=== PATIENT | female | born 1970 | race Two or more races ===

== ENCOUNTER → 2017-06-16 | Outpatient (CLI) | payer OTHER | END | disposition home or self-care (01) | LOC: CFH 13:52 | PROVIDERS: ATTEND Physician Assistant | DX: N64.4 Mastodynia (principal) | CPT/HCPCS: 76641; G0204 ==

== ENCOUNTER → 2018-09-23 | Outpatient (CLI) | payer OTHER | END | disposition home or self-care (01) | LOC: CFH 10:42 | PROVIDERS: ATTEND Obstetrics & Gynecology | DX: Z12.31 Encounter for screening mammogram for malignant neoplasm of breast (principal) | CPT/HCPCS: 77063; 77067 ==

== ENCOUNTER 2020-08-11 23:07 | Emergency (ER) | payer OTHER ==
[~2020-08-11] VITALS: Ht 157.5 cm; Wt 70.0 kg
[~2020-08-11 23:07] MED LIST: DOCU-131 PO; IBUP-1222 PO; NONE PER PT; OXYC-302 PO
[2020-08-11 23:58] VITALS: BP 132/79
== END 2020-08-12 | disposition home or self-care (01) ==
LOC: ED 23:58
DX: S50.861A Insect bite (nonvenomous) of right forearm, initial encounter (principal); L03.113 Cellulitis of right upper limb; W57.XXXA Bitten or stung by nonvenomous insect and other nonvenomous arthropods, initial encounter; Y93.89 Activity, other specified; Y92.89 Other specified places as the place of occurrence of the external cause; Y99.8 Other external cause status
CPT/HCPCS: 99283; Q0177

== ENCOUNTER 2021-01-04 11:48 | Emergency (ER) | payer BC, OTHER ==
[~2021-01-04] VITALS: Ht 157.5 cm; Wt 68.4 kg
[~2021-01-04 11:48] MED LIST changes: -OXYC-302 PO; +OXYC1TAB14 PO
--- NOTE | 2021-01-04 12:01 | NUR ---
Using restroom from triage with [employer] sample instructions given with stated understanding of these.
--- NOTE | 2021-01-04 12:16 | NUR ---
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 DOCUMENTATION SIGNED.
--- NOTE | 2021-01-04 12:17 | NUR ---
PT HAS BEEN HAVING N/V/D FOR 3 DAYS NOW.
[2021-01-04] MEDS ORDERED: MAALOX/HYOSCYAMINE/LIDOCAINE 45 ML BTL PO ONE (12:30)
[2021-01-04] MEDS ORDERED: SODIUM CHLORIDE FLUSH 10ML SYR IVF ONE (12:30)
[2021-01-04] MEDS ORDERED: ONDANSETRON 2MG/ML, 2ML IVPush ONE (12:30)
[2021-01-04] MEDS ORDERED: FAMOTIDINE 20 MG/2 ML IVPush ONE (12:30)
[2021-01-04] MEDS ORDERED: SODIUM CHLORIDE 0.9% 1,000ML IVBOLUS ONE (12:30)
[2021-01-04 12:40] LABS: BASOPHILS % (AUTO) 1 % (0-1); EOSINOPHILS % (AUTO) 3 % (1-7); LYMPHOCYTES % (AUTO) 21 % (22-44); MEAN CORPUSCULAR HEMOGLOBIN 29.8 pg (27.0-34.8); MEAN CORPUSCULAR HGB CONC 33.4 g/dL (32.4-35.8); MONOCYTES % (AUTO) 6 % (2-9); NEUTROPHILS % (AUTO) 70 % (42-75); PLATELET COUNT 283 x10^3/uL (130-400); RED BLOOD COUNT 4.79 x10^6/uL (3.82-5.3); RED CELL DISTRIBUTION WIDTH 14.3 % (9.6-15.2)
[2021-01-04] MEDS ORDERED: MAALOX/HYOSCYAMINE/LIDOCAINE 45 ML BTL ONE (12:47)
[2021-01-04] MEDS ORDERED: FAMOTIDINE 20 MG/2 ML ONE (12:47)
[2021-01-04] MEDS ORDERED: ONDANSETRON 2MG/ML, 2ML ONE (12:47)
[2021-01-04 12:49] LABS: MD NO
[2021-01-04 12:50] LABS: ALBUMIN 4.1 g/dL (3.4-5.0); ANION GAP 6 mmol/L (5-15); CALCIUM 9.1 mg/dL (8.5-10.1); CHLORIDE 113 mmol/L (98-107)
[2021-01-04 12:53] LABS: ALANINE AMINOTRANSFERASE 45 U/L (12-78); ALKALINE PHOSPHATASE 43 U/L (45-117); BILIRUBIN,TOTAL 0.5 mg/dL (0.2-1.0); CREATININE 0.62 mg/dL (0.55-1.02); TOTAL PROTEIN 7.6 g/dL (6.4-8.2)
--- NOTE | 2021-01-04 13:36 | NUR ---
URINE SAMPLE COLLECTED AND SENT.
[2021-01-04 13:51] LABS: MICROSCOPIC NOT IND
--- NOTE | 2021-01-04 14:19 | NUR ---
UPDATED VITALS. CALLED US AND AWAITING FOR PROCEDURE.
--- NOTE | 2021-01-04 14:40 | NUR ---
US IS CURRENTLY IN PT ROOM FOR PROCEDURE.
[2021-01-04 14:57] VITALS: BP 112/67
== END 2021-01-04 15:33 ==
LOC: ED 14:50
DX: K29.00 Acute gastritis without bleeding (principal); R10.12 Left upper quadrant pain; R11.2 Nausea with vomiting, unspecified
CPT/HCPCS: 36415; 76700; 80053; 81003; 83690; 85025; 96361; 96374; 96375; 99285; J2405; J7030